=== PATIENT | female | born 1995 | race Caucasian/White ===

== ENCOUNTER 2017-02-19 20:31 | Outpatient (CLI) | payer OTHER | END 2017-02-19 22:00 | disposition home or self-care (01) | LOC: OBC SRH 20:31 → OB SRH 20:31 → OBC SRH 22:00 | PROC: 4A0HXCZ Measurement of Products of Conception, Cardiac Rate, External Approach (ICD-10-PCS; principal; 2017-02-19) | DX: O47.03 False labor before 37 completed weeks of gestation, third trimester (principal); Z3A.32 32 weeks gestation of pregnancy ==